=== PATIENT | male | born 1960 | race Caucasian/White ===

== ENCOUNTER 2017-05-25 01:19 | Emergency (ER) | payer BC ==
[2017-05-25 01:59] VITALS: RESP 16; TEMP 97.7
--- NOTE | 2017-05-25 02:32 | ED ---
Psych HPI - General Chief Complaint: Psychiatric Symptoms Stated Complaint: mental health,fall Time Seen by Provider: 05/25/17 01:52 Source: police, RN notes reviewed Mode of arrival: ambulatory - History of Present Illness Initial Comments: 56 yo male of the chief complaint of mental health evaluation. Patient is brought in via police after sobering up after being in correction last night. Patient has a history of bipolar disorder. He states that he has been off and on taking his Depakote. Patient states that over the past month he has had multiple arrests for alcohol intoxication. Patient reports that yesterday he was arrested and did have an altercation with the police or patrol park officer. He reports some mild right shoulder pain. He does have full range of motion. Denies any peripheral paresthesias. He also states that he has laceration over the right ear which is healed. He denies any neck pain or significant headache. Patient states that he has been told that he was bipolar within 4 years ago he was told that he was not. Patient states that he's had left over Depakote and has been taking it with alcohol for the past month or so. Patient states that he has no suicidal or homicidal ideations. Per the police or patrol park officer he was supposed to be searching for the patient. Patient family asked the police to help find him in order to have him evaluated. food safety officer states that if he does not come admitted family plans to petition the patient on Friday. - Related Data Home Medications Medication Instructions Recorded Confirmed Multivitamins, Thera [Multivitamin] 1 tab PO DAILY 10/10/16 10/10/16 Previous Rx's Medication Instructions Recorded chlordiazePOXIDE HCl [Librium] 25 mg PO QID #10 capsule 05/25/17 Allergies Allergy/AdvReac Type Severity Reaction Status Date / Time No Known Allergies Allergy Verified 10/10/16 09:55 Review of Systems ROS Statement: Those systems with pertinent positive or pertinent negative responses have been documented in the HPI. ROS Other: All systems not noted in ROS Statement are negative. Past Medical History Past Medical History: No Reported History Additional Past Medical History / Comment(s): bipolar disease History of Any Multi-Drug Resistant Organisms: None Reported Past Surgical History: Orthopedic Surgery Additional Past Surgical History / Comment(s): lt ankle with 4 screws and plate , rt great toe joint replacement Past Anesthesia/Blood Transfusion Reactions: No Reported Reaction Past Psychological History: Bipolar Smoking Status: Current every day smoker - Past Family History Mother Family Medical History: No Reported History General Exam - General Exam Comments Initial Comments: 56-year-old male. No acute distress. Limitations: no limitations General appearance: alert, in no apparent distress Head exam: Present: atraumatic, normocephalic, normal inspection Eye exam: Present: normal appearance, PERRL, EOMI. Absent: scleral icterus, conjunctival injection, periorbital swelling ENT exam: Present: normal exam, mucous membranes moist Neck exam: Present: normal inspection. Absent: tenderness, meningismus, lymphadenopathy Respiratory exam: Present: normal lung sounds bilaterally. Absent: respiratory distress, wheezes, rales, rhonchi, stridor Cardiovascular Exam: Present: regular rate, normal rhythm, normal heart sounds. Absent: systolic murmur, diastolic murmur, rubs, gallop, clicks GI/Abdominal exam: Present: soft, normal bowel sounds. Absent: distended, tenderness, guarding, rebound, rigid Extremities exam: Present: normal inspection, full ROM, normal capillary refill. Absent: tenderness, pedal edema, joint swelling, calf tenderness Back exam: Present: normal inspection Neurological exam: Present: alert, oriented X3, CN II-XII intact Psychiatric exam: Present: normal affect, normal mood Skin exam: Present: warm, dry, intact, normal color. Absent: rash Course Vital Signs 05/25/17 01:55 Temperature 97.7 F Pulse Rate 74 Respiratory 16 Rate Blood Pressure 174/84 O2 Sat by Pulse 100 Oximetry Medical Decision Making - Medical Decision Making Patient were male presenting to the ED with police with chief complaint of needing a psych evaluation. They report that he's been more manic and self- medicating with alcohol. Multiple arrest within the past month. Patient is medically clear at this time for EPS evaluation. Patient denies any suicidal or homicidal ideations. He does not appear to be manic or having any delusions or abnormal thought processes. Patient was evaluated by EPS. They feel the patient could be discharged home. Psychiatrist was called. Again please report that they had nothing to petition the patient at that time however there is a possibility the family plans to petition him on Friday. At this time he has no suicidal thoughts. Patient will be discharged and given resources for [facility] and other psych services. Disposition Clinical Impression: Alcohol use disorder, Right shoulder strain Disposition: HOME SELF-CARE Condition: Good Instructions: Bipolar Disorder (ED), Abuse of Alcohol (ED) Additional Instructions: Patient advised to follow-up with outpatient treatment such as [facility] and [facility]. Patient needs to get following up with psychiatrist for proper medications. Return to the emergency department if any alarming signs or symptoms occur. Prescriptions: chlordiazePOXIDE HCl [Librium] 25 mg PO QID #10 capsule Referrals: Ricki Dos Santos MD [Primary Care Provider] - 1-2 days Time of Disposition: 04:23
[2017-05-25 05:02] VITALS: BP 166/77; PULSE 70
== END 2017-05-25 05:04 | disposition home or self-care (01) ==
LOC: EC 01:19
DX: S46.911A Strain of unspecified muscle, fascia and tendon at shoulder and upper arm level, right arm, initial encounter (principal); F10.99 Alcohol use, unspecified with unspecified alcohol-induced disorder; F17.200 Nicotine dependence, unspecified, uncomplicated; Z79.899 Other long term (current) drug therapy; X58.XXXA Exposure to other specified factors, initial encounter
CPT/HCPCS: 82075; 99284

== ENCOUNTER → 2017-09-15 | Outpatient (CLI) | payer BC ==
[2017-09-15 11:29] LABS: CH 30.3; CHCM 32.5; HCT 46.1 % (39.0-53.0); HDW 2.32; HGB 14.9 gm/dL (13.0-17.5); MCH 30.4 pg (25.0-35.0); MCHC 32.4 g/dL (31.0-37.0); MCV 93.7 fL (80.0-100.0); Mean Platelet Volume 6.5; RBC 4.92 m/uL (4.30-5.90); RDW 12.5 % (11.5-15.5); WBC 6.7 k/uL (3.8-10.6)
== END | disposition home or self-care (01) ==
LOC: LABWHC1 10:57
PROVIDERS: ATTEND Internal Medicine Endocrinology, Diabetes & Metabolism
DX: E29.1 Testicular hypofunction (principal)
CPT/HCPCS: 36415; 84403; 85027